=== PATIENT | female | born 1965 | race Two or more races ===

== ENCOUNTER 2019-10-10 15:30 | Outpatient (AMBR) | payer MEDICARE, MEDICAID, SELFPAY ==
--- NOTE | 2019-09-13 14:11 | PT.OIERPT ---
PT OP Initial Eval Patient Information Visit Reasons: post op right knee Medical Diagnosis: Right Knee Pain; RIght Knee Torn Meniscuc Treatment Dx #1: Right Knee Mobility Deficits Treatment Dx #2: Right Knee Weakness Start of Care: 09/13/19 Date of Onset: 08/25/19 Initial Assessment Subjective Pt is a 53 y/o female s/p right knee arthroscopic surgery secondary to meniscal lesion. Pt still has knee pain (8/10) with activities. Pt has limitation with walking, standing, chores, cooking, cleaning, recreational activities, squatting, kneeling, and performing stairs Objective Right Knee AROM: -12 deg to 72 deg Right Knee MMTs Quads: 3-/5 Hs: 3-/5 Right Hip MMTs Glute Med: 3-/5 Glute Max: 3-/5 SLS: unable Knee Cap Mobility: hypomobile in all plane SLR: 45 deg Assessment Pt demonstrate right knee mobility and strength deficits s/p surgery leading to decline function. Pt will benefit from physical therapy to increase, strength, mobility, and work on ambulation Short Term and Long-Term Goals 1) Increase right knee AROM WFL in 8 wks to be able to perform squatting activities 2) Increase right knee MMTs to 4-/5 in 8 wks to be able to perform stairs and steps 3) Increase right hip MMTs to 4-/5 in 8 wks to be able to perform ambulation more than 1.5 hrs 4) Decrease knee pain to 2/10 in 8 wks to be able to perform chores 5) Increase SLS to 20 sec in 8 wks to be able to perform self care activities 6) Indep with HEP Treatment Plan 1) Manual Therapy 2) Therapeutic Activities 3) Therapeutic Exercises 4) Modalities (ice, heat) 5) Balance Training 6) Gait Training Frequency and Duration 2 x wk for 8 wks Certification Dates: 09/13/19 to 12/13/19 Office Procedures PT Procedures PT Date of Service: 09/13/19 OP PT Eval Mod Complex 30 minutes: Yes
--- NOTE | 2019-09-18 11:07 | PT.ODAYNRPT ---
PT Outpatient Daily Note Date of Service: September 15, 2019 OP Daily Note Visit Reasons: post op right knee Outpatient Physical Therapy Treatment Date: 09/15/19 Subjective: Pt mention that she still has knee pain but it does feel a little better. Objective: Please see flow chart for list of ther ex performed Assessment: pain with all exercises; limited into knee flexion ROM due to pain. post ice help decrease knee pain Plan: Continue with PT Length of Time (minutes) of Treatment: 30 Minutes Office Procedures PT Procedures PT Date of Service: 09/13/19 OP PT Eval Mod Complex 30 minutes: Yes PT Procedures PT Date of Service: 09/15/19 Therapeutic Exercise 30 minutes: Yes
--- NOTE | 2019-09-20 12:57 | PT.ODAYNRPT ---
PT Outpatient Daily Note Date of Service: September 20, 2019 OP Daily Note Visit Reasons: post op right knee Outpatient Physical Therapy Treatment Date: 09/20/19 Subjective: Pt's knee feel much better. Pt still notice some pain with walking. Objective: Please see flow chart for list of ther ex performed Assessment: tolerate exercises with minimal pain Plan: Continue with PT Length of Time (minutes) of Treatment: 30 Minutes Office Procedures PT Procedures PT Date of Service: 09/13/19 OP PT Eval Mod Complex 30 minutes: Yes PT Procedures PT Date of Service: 09/20/19 Therapeutic Exercise 30 minutes: Yes PT Procedures PT Date of Service: 09/15/19 Therapeutic Exercise 30 minutes: Yes
--- NOTE | 2019-09-22 11:21 | PT.ODAYNRPT ---
PT Outpatient Daily Note Date of Service: September 22, 2019 OP Daily Note Visit Reasons: post op right knee Outpatient Physical Therapy Treatment Date: 09/22/19 Subjective: Pt's knee is a little sore but feels better. Objective: Please see flow chart for list of ther ex performed Assessment: increase knee flexion AROM; less cues to correct exercises Plan: Continue with PT Length of Time (minutes) of Treatment: 30 Minutes Office Procedures PT Procedures PT Date of Service: 09/13/19 OP PT Eval Mod Complex 30 minutes: Yes PT Procedures PT Date of Service: 09/20/19 Therapeutic Exercise 30 minutes: Yes PT Procedures PT Date of Service: 09/15/19 Therapeutic Exercise 30 minutes: Yes PT Procedures PT Date of Service: 09/22/19 Therapeutic Exercise 30 minutes: Yes
--- NOTE | 2019-09-27 13:42 | PT.ODAYNRPT ---
PT Outpatient Daily Note Date of Service: September 27, 2019 OP Daily Note Visit Reasons: post op right knee Outpatient Physical Therapy Treatment Date: 09/27/19 Subjective: Pt's knee hurt near the incision. Pt mention that there's soreness but it feels much better Objective: Please see flow chart for list of ther ex performed Assessment: increase knee flexion AROM with less pain. Pt is walking better with less antalgic gait Plan: Continue with PT Length of Time (minutes) of Treatment: 30 Minutes Office Procedures PT Procedures PT Date of Service: 09/13/19 OP PT Eval Mod Complex 30 minutes: Yes PT Procedures PT Date of Service: 09/20/19 Therapeutic Exercise 30 minutes: Yes PT Procedures PT Date of Service: 09/15/19 Therapeutic Exercise 30 minutes: Yes PT Procedures PT Date of Service: 09/22/19 Therapeutic Exercise 30 minutes: Yes PT Procedures PT Date of Service: 09/27/19 Therapeutic Exercise 30 minutes: Yes
--- NOTE | 2019-10-02 14:44 | PT.ODAYNRPT ---
PT Outpatient Daily Note Date of Service: October 02, 2019 OP Daily Note Visit Reasons: post op right knee Outpatient Physical Therapy Treatment Date: 10/02/19 Subjective: pt pleasant but states she has pain on B knees which makes it hard for her to ambulate. Objective: see flow sheet. Assessment: pt has antalgic gait pattern due to pain both knees. she has no AD. she is not flexing the knee as she depends more on the R hip. as she steps up on the stair case she again uses more hip than knee flexion. she corrected a little after demonstration. pt understands the unequal WB/weight shifting. advised pt to continue HEP to increase strength on the RLE to decrease compensation. Plan: continue POC per PT. Length of Time (minutes) of Treatment: 30 Minutes Office Procedures PT Procedures PT Date of Service: 09/13/19 OP PT Eval Mod Complex 30 minutes: Yes PT Procedures PT Date of Service: 09/20/19 Therapeutic Exercise 30 minutes: Yes PT Procedures PT Date of Service: 09/15/19 Therapeutic Exercise 30 minutes: Yes PT Procedures PT Date of Service: 09/22/19 Therapeutic Exercise 30 minutes: Yes PT Procedures PT Date of Service: 09/27/19 Therapeutic Exercise 30 minutes: Yes PT Procedures PT Date of Service: 10/02/19 Therapeutic Exercise 30 minutes: Yes
--- NOTE | 2019-10-05 16:34 | PT.ODAYNRPT ---
PT Outpatient Daily Note Date of Service: October 05, 2019 OP Daily Note Visit Reasons: post op right knee Outpatient Physical Therapy Treatment Date: 10/05/19 Subjective: pt states her knee still has that pain although its tolerable. Objective: see flow sheet. Assessment: as she ascends and descends the step laterally she steps up with wide angle causing her to lean inward to compensate. corrected her foot placement closer to the edge in which corrected her posture. the heels slides seemed to cause increase in muscle fatigue could be from all the other exercises. she was demonstrated about 90 degrees of knee flexion. Plan: continue POC per PT. Length of Time (minutes) of Treatment: 30 Minutes FIELD CROP FARMWORKER Service Modifier Method I: Divide the number of min of care provided by the FIELD CROP FARMWORKER/ANDRÉS by the total min of care provided then multiply by 100. If greater than 11 percent modifier is required. Method II: Divide the total time of care provided to patient by 10 (round to the nearest whole number) and add 1 min. to set the minimum time requirement. If treatment total was 60 min., then 10% of 6 min Did FIELD CROP FARMWORKER provide more than 10% of the care?: Yes PT CQ modifier applied: CQ Modifier applied Office Procedures PT Procedures PT Date of Service: 09/13/19 OP PT Eval Mod Complex 30 minutes: Yes PT Procedures PT Date of Service: 09/20/19 Therapeutic Exercise 30 minutes: Yes PT Procedures PT Date of Service: 10/05/19 Therapeutic Exercise 30 minutes: Yes PT Procedures PT Date of Service: 09/15/19 Therapeutic Exercise 30 minutes: Yes PT Procedures PT Date of Service: 09/22/19 Therapeutic Exercise 30 minutes: Yes PT Procedures PT Date of Service: 09/27/19 Therapeutic Exercise 30 minutes: Yes PT Procedures PT Date of Service: 10/02/19 Therapeutic Exercise 30 minutes: Yes
--- NOTE | 2019-10-10 16:20 | PT.ODS1RPT ---
PT OP Progress/Discharge Note Date of Service: October 10, 2019 Progress Note/DC Note Progress Note/Discharge Note: Progress Note Patient Information Visit Reasons: post op right knee Medical Diagnosis: Right Knee Pain; Right Knee Torn Meniscus Treatment Dx #1: Right Knee Mobility Deficits Treatment Dx #2: Right Knee Weakness Service Continue Service or Discharge: Continue Service Certification Date Certification Dates: 10/10/19 to 01/09/20 Status Subjective: Pt mention that her knee feels better, however, continues to have anterior and posterior knee pain. Pt has been able to walk longer, stand, and start light ADLs. Pt still has limitation with walking faster, chores, squatting, kneeling, lifting, and recreational activities. Pt will like to continue physical therapy and will be seeing the surgeon on 10/12/19. Objective: Right Knee AROM: -7 deg to 109 deg Right Knee MMTs Quads: 3/5 Hs: 3/5 Right Hip MMTs Glute Med: 3/5 Glute Max: 3/5 Knee Cap Mobility: WNL in all plane SLR: 50 deg Assessment: Pt demonstrate improvement with knee mobility and strength, however, continues to have pain leading to difficulty with prolonged ambulation, standing, chores, self care, and performing recreational activities. Pt has not met set goals yet and will continue to benefit from physical therapy, thank you for your referrals. Plan: Continue with PT/POC and add 8 sessions (2 x wk for 4 wks) Office Procedures PT Procedures PT Date of Service: 09/13/19 OP PT Eval Mod Complex 30 minutes: Yes PT Procedures PT Date of Service: 09/20/19 Therapeutic Exercise 30 minutes: Yes PT Procedures PT Date of Service: 10/05/19 Therapeutic Exercise 30 minutes: Yes PT Procedures PT Date of Service: 09/15/19 Therapeutic Exercise 30 minutes: Yes PT Procedures PT Date of Service: 09/22/19 Therapeutic Exercise 30 minutes: Yes PT Procedures PT Date of Service: 09/27/19 Therapeutic Exercise 30 minutes: Yes PT Procedures PT Date of Service: 10/02/19 Therapeutic Exercise 30 minutes: Yes PT Procedures PT Date of Service: 10/10/19 Therapeutic Exercise 30 minutes: Yes
== END 2019-10-12 23:59 | disposition home or self-care (01) ==
PROVIDERS: PCP Physician Assistant; Referring Provider Physician Assistant; Visit Provider Orthopaedic Surgery
DX: Z98.890 Other specified postprocedural states (principal); R53.1 Weakness; M25.561 Pain in right knee; R26.2 Difficulty in walking, not elsewhere classified
CPT/HCPCS: 97110; 97162

== ENCOUNTER 2019-10-17 14:25 | Outpatient (AMBR) | payer MEDICARE, MEDICAID, SELFPAY ==
--- NOTE | 2019-10-17 16:17 | PT.ODAYNRPT ---
PT Outpatient Daily Note Date of Service: October 17, 2019 OP Daily Note Visit Reasons: post op right knee Outpatient Physical Therapy Treatment Date: 10/17/19 Subjective: Pt mention that her knee is hurt more since last appt which she skip last schedule appt. Pt went for a walk today ~ 1 mile and during the walk she heard a pop in her knee. Since the incident Pt notice some scratch aldo and redness around her knee causing her to have pain. Pt is having slight difficulty walking due to knee pain. Objective: Right Knee AROM: 0 deg to 112 deg Assessment: Pt's knee was inspected and noted redness with scratch lamas around knee cap region which seems like it was from a fall which patient deny. Pt advised if that worsen after therapy session to make an appt with surgeon for further consultation. Pt gave verbal consent. Pt still exhibit good knee ROM but perform all exercises very guarded due to pain. Plan: Continue with PT Length of Time (minutes) of Treatment: 30 Minutes Office Procedures PT Procedures PT Date of Service: 10/17/19 Therapeutic Exercise 30 minutes: Yes
--- NOTE | 2019-10-23 16:26 | PTNOTE_ITS ---
PT Outpatient Daily Note Date of Service: 10/23/2019 OP Daily Note Visit Reasons: post op right knee Outpatient Physical Therapy Treatment Date: 10/23/19 Subjective: pt states she still has pain of her R knee which limits her activities. Objective: see flow sheet. Assessment: pt had complaints when activating the quads in SAQs and LAQs. although she had the ROM she had discomfort but she was able to complete the exercises. those were the only exercises she had complaints with. she had no trouble with the rest of the exercises. she is able to weight shift without compensating. Plan: continue POC per PT. Length of Time (minutes) of Treatment: 30 Minutes MAINSPRING FABRICATION SUPERVISOR Service Modifier Method I: Divide the number of min of care provided by the MAINSPRING FABRICATION SUPERVISOR/ENGINEERING AND SCIENTIFIC PROGRAMMER by the total min of care provided then multiply by 100. If greater than 11 percent modifier is required. Method II: Divide the total time of care provided to patient by 10 (round to the nearest whole number) and add 1 min. to set the minimum time requirement. If treatment total was 60 min., then 10% of 6 min Did MAINSPRING FABRICATION SUPERVISOR provide more than 10% of the care?: Yes Office Procedures PT Procedures PT Date of Service: 10/23/19 Therapeutic Exercise 30 minutes: Yes PT Procedures PT Date of Service: 10/17/19 Therapeutic Exercise 30 minutes: Yes
--- NOTE | 2019-10-26 16:54 | PT.ODAYNRPT ---
PT Outpatient Daily Note Date of Service: 10/26/2019 OP Daily Note Visit Reasons: post op right knee Outpatient Physical Therapy Treatment Date: 10/26/19 Subjective: pt states she continues to have the pain on the lower part of the knee upon visit. Objective: see flow sheet. Assessment: pt does have discomfort throughout treatment due to the complaints of the pain. the exercise tick-tocks increase her knee pain so discontinued that exercise and moved on with others. noted her posture is better which then decreases her compensation. she is able to activate the quads with no back extension. ice pack post ther ex. Plan: continue POC per PT. Length of Time (minutes) of Treatment: 30 Minutes PUBLIC SPEAKING TEACHER Service Modifier Method I: Divide the number of min of care provided by the PUBLIC SPEAKING TEACHER/ANDRÉS by the total min of care provided then multiply by 100. If greater than 11 percent modifier is required. Method II: Divide the total time of care provided to patient by 10 (round to the nearest whole number) and add 1 min. to set the minimum time requirement. If treatment total was 60 min., then 10% of 6 min Did PUBLIC SPEAKING TEACHER provide more than 10% of the care?: Yes Office Procedures PT Procedures PT Date of Service: 10/23/19 Therapeutic Exercise 30 minutes: Yes PT Procedures PT Date of Service: 10/26/19 Therapeutic Exercise 30 minutes: Yes PT Procedures PT Date of Service: 10/17/19 Therapeutic Exercise 30 minutes: Yes
--- NOTE | 2019-10-30 15:35 | PT.ODAYNRPT ---
PT Outpatient Daily Note Date of Service: 10/30/19 OP Daily Note Visit Reasons: post op right knee Outpatient Physical Therapy Treatment Date: 10/30/19 Subjective: Pt's knee is feeling better. Pt is resting more and not walking as far. Objective: Please see flow chart for list of ther ex performed Assessment: tolerate exercises with minimal pain; continues to improve with knee ROM Plan: Continue with PT Length of Time (minutes) of Treatment: 30 Minutes Office Procedures PT Procedures PT Date of Service: 10/23/19 Therapeutic Exercise 30 minutes: Yes PT Procedures PT Date of Service: 10/26/19 Therapeutic Exercise 30 minutes: Yes PT Procedures PT Date of Service: 10/17/19 Therapeutic Exercise 30 minutes: Yes PT Procedures PT Date of Service: 10/30/19 Therapeutic Exercise 30 minutes: Yes
--- NOTE | 2019-11-02 16:02 | PT.ODAYNRPT ---
PT Outpatient Daily Note Date of Service: 11/02/19 OP Daily Note Visit Reasons: post op right knee Outpatient Physical Therapy Treatment Date: 11/02/19 Subjective: Pt mention that her knee hurts today. Pt does flight of stairs x 4 each day. Pt feels better during therapy session but more pain in 48 hrs Objective: Please see flow chart for list of ther ex performed Assessment: tolerate exercises with minimal pain; modified to smaller steps today Plan: Continue with PT Length of Time (minutes) of Treatment: 30 Minutes Office Procedures PT Procedures PT Date of Service: 10/23/19 Therapeutic Exercise 30 minutes: Yes PT Procedures PT Date of Service: 10/26/19 Therapeutic Exercise 30 minutes: Yes PT Procedures PT Date of Service: 11/02/19 Therapeutic Exercise 30 minutes: Yes PT Procedures PT Date of Service: 10/17/19 Therapeutic Exercise 30 minutes: Yes PT Procedures PT Date of Service: 10/30/19 Therapeutic Exercise 30 minutes: Yes
--- NOTE | 2019-11-08 15:28 | PT.ODAYNRPT ---
PT Outpatient Daily Note Date of Service: 11/08/19 OP Daily Note Visit Reasons: post op right knee Outpatient Physical Therapy Treatment Date: 11/08/19 Subjective: Pt mention that her knee feels good. Pt stated that her pain is less today Objective: Please see flow chart for list of ther ex performed Assessment: tolerate exercises with minimal pain Plan: Continue with PT Length of Time (minutes) of Treatment: 30 Minutes Office Procedures PT Procedures PT Date of Service: 10/23/19 Therapeutic Exercise 30 minutes: Yes PT Procedures PT Date of Service: 10/26/19 Therapeutic Exercise 30 minutes: Yes PT Procedures PT Date of Service: 11/02/19 Therapeutic Exercise 30 minutes: Yes PT Procedures PT Date of Service: 10/17/19 Therapeutic Exercise 30 minutes: Yes PT Procedures PT Date of Service: 10/30/19 Therapeutic Exercise 30 minutes: Yes PT Procedures PT Date of Service: 11/08/19 Therapeutic Exercise 30 minutes: Yes
== END 2019-11-12 23:59 | disposition home or self-care (01) ==
PROVIDERS: PCP Physician Assistant; Referring Provider Physician Assistant; Visit Provider Orthopaedic Surgery
DX: Z98.890 Other specified postprocedural states (principal); R53.1 Weakness; M25.561 Pain in right knee; R26.2 Difficulty in walking, not elsewhere classified
CPT/HCPCS: 97110

== ENCOUNTER → 2024-05-16 | Outpatient (CLI) | payer MEDICARE, MEDICAID, SELFPAY ==
--- NOTE | 2024-05-16 16:29 | XR_ITS ---
Examination: CT abdomen and pelvis without contrast. Coronal 3-D reconstructions. Sagittal 2-D reconstructions. Date and time of exam:May 16, 2024 1647 hours Comparison December 11, 2021 INDICATIONS: Acute abdominal pain beginning 3 weeks ago CTDI: vol (mGy): 11 DLP: (mGycm): 615 Technique: Axial images of the abdomen have been obtained, 3 mm slice thickness Intravenous contrast material has not been administered. Low dose protocols were performed. One or more of the following dose reduction techniques were used; automated exposure control, adjustment of the mA and/or KV according to patient size, use of iterative reconstruction technique. Findings: No focal liver or splenic lesions Contracted gallbladder No pancreatic or adrenal mass No peripancreatic edema No renal or ureteral calculi, no hydronephrosis Normal appendix No bowel obstruction No diverticulitis Urinary bladder intact Anteverted uterus No adnexal mass Moderate osteopenia IMPRESSION: Negative for pancreatitis Consider hepatobiliary sonography follow-up
== END | disposition home or self-care (01) ==
PROVIDERS: PCP Physician Assistant; Referring Provider Physician Assistant; Visit Provider Physician Assistant
DX: R10.0 Acute abdomen (principal)
CPT/HCPCS: 74176

== ENCOUNTER → 2024-06-27 | Outpatient (CLI) | payer MEDICARE, MEDICAID, SELFPAY ==
--- NOTE | 2024-06-27 | XR_ITS ---
Examination: Shoulder,right, 3 views Technique: Shoulder AP internal rotation, AP external rotation, Y view shoulder, 3 views Exam date and time :June 27, 2024 1155 hours INDICATIONS: Injury to the shoulder today, shoulder pain. FINDINGS: Significant osteopenia No shoulder fracture or dislocation No AC joint separation IMPRESSION: No shoulder fracture or dislocation
--- NOTE | 2024-06-27 | XR_ITS ---
EXAMINATION: Cervical spine, 5 views Technique: Cervical spine AP, AP odontoid, lateral, bilateral obliques, 5 views Exam date and time: June 27, 2024 1155 hours INDICATIONS: Onset neck pain today. FINDINGS: Adequate alignment cervical vertebral bodies Moderate cervical spondylosis No cervical fracture No significant cervical disc narrowing No significant neural foraminal stenosis IMPRESSION: No cervical fracture Moderate cervical spondylosis
--- NOTE | 2024-06-27 | XR_ITS ---
Examination: Ribs, right, with PA chest, 5 views Technique: Chest PA, RIBS AP, RPO, LPO, AP coned lower ribs 5 views Exam date and time: June 27, 1999 2555 hours INDICATIONS: Injury to the right chest today with upper right rib pain Findings: Normal heart size No pneumothorax Moderate osteopenia No acute rib fractures IMPRESSION: No pneumothorax pulmonary contusion or hemothorax No acute rib fractures depicted
== END | disposition home or self-care (01) ==
PROVIDERS: PCP Physician Assistant; Referring Provider Obstetrics & Gynecology; Visit Provider Obstetrics & Gynecology
DX: M47.812 Spondylosis without myelopathy or radiculopathy, cervical region (principal); S29.9XXA Unspecified injury of thorax, initial encounter; S49.91XA Unspecified injury of right shoulder and upper arm, initial encounter; X58.XXXA Exposure to other specified factors, initial encounter
CPT/HCPCS: 71101; 72050; 73030

== ENCOUNTER → 2024-10-31 | Outpatient (CLI) | payer MEDICARE, MEDICAID, SELFPAY ==
--- NOTE | 2024-10-31 13:00 | XR_ITS ---
Examination: Screening digital mammography, bilateral Computer aided detection 3-D breast Tomosynthesis, bilateral Date and time of exam: October 31, 2024 1305 hours Compared to mammograms dating to April 03, 2008 Indication: Screening Technique: Nonmagnified MLO, CC views of the breasts to been obtained, reconstructed from 3-D Tomosynthesis images. R2 computer aided detection program utilized for evaluation of suspicious masses and/or abnormal calcifications. 3-D Tomosynthesis images obtained. Findings: Scattered areas of fibroglandular density. Benign calcifications. No interval suspicious masses Impression: BI-RADS category II: Benign Findings. Recommend 1 year follow-up mammogram.
--- NOTE | 2024-10-31 13:20 | XR_ITS ---
Examination: Bone densitometry Date and time of exam:October 31, 2024 1325 hours INDICATIONS: Menopause age 45, diabetic Technique: Lumbar spine and hip total bone mineralization values of an calculated. Peak reference and age match control results have been displayed. Findings: Lumbar spine total bone mineralization is0.888 gm/cm2. This is 1.4 standard deviations below peak reference. This is 0.2 standard deviations below age-matched controls. Hip total bone mineralization is 1.044 gm/cm2 This is 0.6 standard deviations above peak reference. This is 1.5 standard deviations above age-matched controls Impression: There is osteopenia based on lumbar spine measurements. There is osteopenia based on hip measurements
== END | disposition home or self-care (01) ==
LOC: CDIM 12:51
PROVIDERS: Referring Provider Physician Assistant; Visit Provider Physician Assistant
DX: Z12.31 Encounter for screening mammogram for malignant neoplasm of breast (principal); R92.323 Mammographic fibroglandular density, bilateral breasts; R92.1 Mammographic calcification found on diagnostic imaging of breast; M85.89 Other specified disorders of bone density and structure, multiple sites
CPT/HCPCS: 77063; 77067; 77080